=== PATIENT | male | born 1990 | race Caucasian/White ===

== ENCOUNTER 2021-03-30 20:35 | Emergency (ER) | payer BC, OTHER ==
[2021-03-30 20:51] VITALS: BP 138/94; PULSE 75; RESP 18; TEMP 98.2
--- NOTE | 2021-03-30 21:12 | ED ---
Eye Problem HPI - General Chief complaint: Eye Problems Stated complaint: Stye Time Seen by Provider: 03/30/21 21:02 Source: patient, RN notes reviewed Mode of arrival: ambulatory Limitations: no limitations - History of Present Illness Initial comments: Patient is a 30-year-old male that presents to emergency department with a left inferior eyelid stye. He notes he was started on erythromycin ointment several days ago with no relief. He notes he came to ER to get a second opinion. He denied any extraocular movement pain change in vision. He was well-appearing 30-year-old male distress or pain. She denied chest pain first breath headache nausea vomiting diarrhea constipation fever fatigue chills. - Related Data Previous Rx's Medication Instructions Recorded Sulfamethox-Tmp 800-160Mg [Bactrim 1 each PO Q12HR #20 tab 03/30/21 Ds] Allergies Allergy/AdvReac Type Severity Reaction Status Date / Time No Known Allergies Allergy Verified 03/30/21 20:51 Review of Systems ROS Statement: Those systems with pertinent positive or pertinent negative responses have been documented in the HPI. ROS Other: All systems not noted in ROS Statement are negative. Past Medical History Past Medical History: No Reported History History of Any Multi-Drug Resistant Organisms: None Reported Past Surgical History: Appendectomy Additional Past Surgical History / Comment(s): left ankle surgery, Past Psychological History: No Psychological Hx Reported Smoking Status: Current every day smoker Past Alcohol Use History: Occasional Past Drug Use History: Marijuana General Exam Limitations: no limitations General appearance: alert, in no apparent distress Head exam: Present: atraumatic, normocephalic, normal inspection Eye exam: Present: normal appearance, PERRL, EOMI. Absent: scleral icterus, conjunctival injection, periorbital swelling Expanded Eyelids: Stye: Left (Medium inferior lid minimally erythematous no periorbital swelling.) Course Vital Signs 03/30/21 20:46 Temperature 98.2 F Pulse Rate 75 Respiratory 18 Rate Blood Pressure 138/94 O2 Sat by Pulse 100 Oximetry Medical Decision Making - Medical Decision Making 30-year-old male with a left inferior eyelid stye on erythromycin ointment. No imaging needed at this time. Patient was informed that he can take oral antibiotics and follow-up with his furniture technician. Case discussed with Dr. Dobbins, patient discharge home. Disposition Clinical Impression: Hordeolum externum (stye) Disposition: HOME SELF-CARE Condition: Stable Instructions (If sedation given, give patient instructions): Eye Wash (Into the eye) Additional Instructions: Please return to the Emergency Department if symptoms worsen or any other concerns. Follow-up with furniture technician and primary care as needed. Take antibiotics as prescribed. Wash eyes with warm water gentle soap. Is patient prescribed a controlled substance at d/c from ED?: No Referrals: Judd Recinos DO [Primary Care Provider] - 1-2 days Time of Disposition: 21:12
== END 2021-03-30 21:29 | disposition home or self-care (01) ==
LOC: EC 20:35
DX: H00.016 Hordeolum externum left eye, unspecified eyelid (principal); F17.200 Nicotine dependence, unspecified, uncomplicated; F12.90 Cannabis use, unspecified, uncomplicated
CPT/HCPCS: 99283